=== PATIENT | male | born 1965 | race Caucasian/White ===

== ENCOUNTER 2017-02-26 17:31 | Emergency (ER) | payer OTHER ==
[~2017-02-26] VITALS: Ht 162.6 cm; Wt 80.3 kg
[~2017-02-26 17:31] MED LIST: AMBIEN10 MG PO; AMBIEN5 MG PO; ANALGESIC325 M1 PO; ANUCORT-HC25 MG RC; ANUSOL HC,ANUCO25 MG PR; ASPIR-LOW81 MG PO; AUGMENTIN875 MG PO; AZITHROMYCIN250 MG1 PO; Ambien PO; BACTRIM,SEPT1 TABLET PO; BACTROBAN OINTM22 GM TP; CANASA1000 MG PR; CEFDINIR300 MG PO; CIPRO500 MG PO; CIPROFLOXACIN500 M1 PO; CLONAZEPAM1 M1 PO; CLONAZEPAM1 MG PO; CRESTOR10 MG PO; DESIPRAMINE HC100 MG PO; DESIPRAMINE HC150 MG PO; DESIPRAMINE HCL50 MG PO; DOLOPHINE HCL5 MG PO; DOXYCYCLINE HY100 MG PO; ECOTRIN325 MG PO; EQUATE1 EACH MC; Ecotrin PO; Flexeril PO; GABAPENTIN300 MG PO; GABAPENTIN800 MG PO; GEMFIBROZIL600 MG PO; GLUCOPHAGE1000 MG PO; GLUCOPHAGE500 MG PO; Glucophage PO; HYDROCORTISONE25 MG PO; INDERAL80 M1 NG; INDOCIN25 MG PO; KEPPRA250 MG PO; KLONOPIN0.5 M1 PO; KLONOPIN1 MG PO; KLONOPIN2 MG PO; KlonoPIN PO; LANTUS 10100 UNITS/ SC; LANTUS 3 M100 UNITS1 SC; LANTUS100 UNIT/1 SQ; LEVEMIR FL100 UNIT/1 SC; LISINIPRIL; LO-DOSE ASPIRIN81 M1 PO; LORAZEPAM1 MG PO; LOVASTATIN10 MG PO; METFORMIN HCL1000 M1 PO; METFORMIN HCL1000 MG PO; METOCLOPRAMIDE10 MG PO; METRONIDAZOLE500 MG PO; MYCOSTATIN 100,60 ML PO; NAPROSYN500 MG PO; NEURONTIN300 MG PO; NEURONTIN50 MG/ML PO; NEURONTIN600 MG PO; NEURONTIN800 MG PO; NORPRAMIN PO; NOVOLOG MI100 UNIT/3 SQ; NOVOLOG PE100 UNITS/ SC; Neurontin PO; OXECTA5 MG PO; OXYCODONE HCL10 MG PO; OXYCODONE HCL5 MG PO; PANTOPRAZOLE SO40 MG PO; PLAVIX75 MG PO; PRAVASTATIN SOD40 MG PO; PROPRANOLOL HCL80 MG PO; PROTONIX40 MG PO; Plavix PO; PriLOSEC PO; ROXICODONE5 MG PO; SILVASORB1.5 OZ TP; SYMBICORT60 INHALAT IH; TEGRETOL200 MG PO; TOPAMAX25 MG PO; TOPIRAMATE25 MG PO; TRILEPTAL600 MG PO; TRILIPIX135 MG PO; TYLENOL WITH C1 EACH PO; Trileptal PO; Ultram PO; VENTOLIN HFA18 GM IH; VITAMIN D50000 UNI1 PO; ZESTRIL,PRINIVI20 MG PO; ZESTRIL40 MG PO; ZITHROMAX Z-PA250 MG PO; ZOFRAN ODT4 MG PO; ZOFRAN4 MG PO; ZOLPIDEM TARTRA10 MG PO; Zestril,Prinivil PO; oxyCODONE PO
[2017-02-26] MEDS ORDERED: LANTUS 3 M100 UNITS1 SC (18:53)
[2017-02-26 19:17] LABS: EOSINOPHIL COUNT 0.1 K/uL (0-0.3); HEMATOCRIT 41.5 % (38.0-50.0); IMMATURE GRANULOCYTE (%) 0.2 % (0.0-0.7); INSTRUMENT ABS NEUTROPHIL CT 2.7 K/uL; MCH 31.1 PG (29.0-34.0); MCHC 35.4 G/DL (30.0-36.0); MCV 87.7 FL (86-99); MEAN PLAT.VOLUME 10.1 uM^3 (9.0-12.4); MONOCYTE (%) 7.4 % (3-12); MONOCYTE COUNT 0.4 K/uL (0-0.8); NEUTROPHIL COUNT 2.7 K/uL (1.8-6.4); PLATELET COUNT 259 K/uL (156-360); RBC DIS.WIDTH-CV 12.5 % (11.8-14.6); RBC DIS.WIDTH-SD 40.4 % (39-53); RED BLOOD COUNT 4.73 M/uL (4.00-5.50); WHITE BLOOD COUNT 5.1 K/uL (4.1-10.2)
[2017-02-26 19:24] LABS: ADD MIUA? NO; BILIRUBIN NEGATIVE; BLOOD NEGATIVE; COLOR YELLOW ((YELLOW)); GLUCOSE (STRIP) NEGATIVE; KETONES NEGATIVE; LEUKOCYTES NEGATIVE; NITRITE NEGATIVE; PROTEIN (STRIP) NEGATIVE; SPECIFIC GRAVITY 1.011 (1.000-1.030); UROBILINOGEN 0.2 MG/DL (0.2-1.0)
[2017-02-26 19:25] LABS: CHLORIDE 107 mEq/L (99-109); POTASSIUM 3.8 mEq/L (3.7-5.4); SODIUM 138 mEq/L (136-147)
[2017-02-26 19:26] LABS: POINT-OF-CARE METER ID UU14100415
[2017-02-26 19:27] LABS: GLUCOSE 125 mg/dL (70-99)
[2017-02-26 19:28] LABS: ANION GAP 8 MEQ/L (2-14)
[2017-02-26 19:29] LABS: TOTAL BILIRUBIN 0.4 mg/dL (0.0-1.0)
[2017-02-26 19:30] LABS: ALKALINE PHOSPHATASE 87 IU/L (3-129)
[2017-02-26 19:31] LABS: GFR ESTIMATE (CALCULATED) > 59 mL/min/
[2017-02-26 19:32] LABS: UREA NITROGEN (BUN) 17 mg/dL (9-23)
[2017-02-26 19:34] LABS: LIPASE 22 U/L (1.0-51.0)
[2017-02-26] MEDS ORDERED: FIORICET,ESG1 TABLET PO (21:14)
[2017-02-26 21:39] VITALS: BP 154/92
== END 2017-02-26 21:41 | disposition home or self-care (01) ==
LOC: EME 17:31
PROVIDERS: Emergency Medicine
DX: G43.909 Migraine, unspecified, not intractable, without status migrainosus (principal); F41.1 Generalized anxiety disorder; E11.9 Type 2 diabetes mellitus without complications; I10 Essential (primary) hypertension; Z86.73 Personal history of transient ischemic attack (TIA), and cerebral infarction without residual deficits
CPT/HCPCS: 70450; 80053; 81003; 82948; 83690; 85025; 99281; 99284; J7030

== ENCOUNTER 2017-04-20 00:43 | Inpatient (IN) | payer OTHER ==
[~2017-04-20] VITALS: Ht 162.6 cm; Wt 80.6 kg
[~2017-04-20 00:43] MED LIST changes: +FIORICET,ESG1 TABLET PO
[2017-04-20 01:40] LABS: HEMATOCRIT 31.4 % (38.0-50.0); MCHC 36.6 G/DL (30.0-36.0); MEAN PLAT.VOLUME 9.9 uM^3 (9.0-12.4); RBC DIS.WIDTH-CV 12.8 % (11.8-14.6); RBC DIS.WIDTH-SD 42.2 % (39-53)
[2017-04-20 01:44] LABS: PLATELET COUNT 150 K/uL (156-360); RED BLOOD COUNT 3.49 M/uL (4.00-5.50)
[2017-04-20 01:50] LABS: INTER. NORMALIZED RATIO 1.1; PROTHROMBIN TIME 10.9 (9.2-11.2); PTT 26.8 (25-32)
[2017-04-20 01:54] LABS: CHLORIDE 103 mEq/L (99-109); POTASSIUM 3.7 mEq/L (3.7-5.4); SODIUM 132 mEq/L (136-147)
[2017-04-20 01:57] LABS: ANION GAP 6 MEQ/L (2-14); GLUCOSE 429 mg/dL (70-99)
[2017-04-20 02:00] LABS: GFR ESTIMATE (CALCULATED) > 59 mL/min/
[2017-04-20 02:01] LABS: UREA NITROGEN (BUN) 9 mg/dL (9-23)
[2017-04-20 02:08] LABS: TROP-I INTERPRETATION NEGATIVE; TROPONIN-I < 0.01 ng/mL (0.0-0.30)
[2017-04-20 03:26] LABS: IMM.RETIC FRACTION 11.7 % (3-19); RETIC HGB EQUIVALENT 37.4 (28-36); RETICULOCYTE COUNT 2.3 % (0.5-1.8)
[2017-04-20 03:48] LABS: POINT-OF-CARE METER ID UU13113702
[2017-04-20 04:07] LABS: D-DIMER ELISA 0.19 mg/L FEU (< 0.57)
[2017-04-20 04:18] LABS: IRON 48 MCG/DL (35-150)
[2017-04-20 04:58] VITALS: BP 126/75
[2017-04-20 07:14] VITALS: BP 109/62
[2017-04-20 07:46] LABS: POINT-OF-CARE METER ID UU14174216
[2017-04-20 08:18] LABS: FERRITIN 41 NG/ML (22-322)
[2017-04-20 08:20] LABS: TROP-I INTERPRETATION NEGATIVE; TROPONIN-I < 0.01 ng/mL (0.0-0.30)
[2017-04-20 11:31] VITALS: BP 122/72
[2017-04-20 11:38] LABS: POINT-OF-CARE METER ID UU14174216
[2017-04-20 15:30] VITALS: BP 123/73
[2017-04-20 15:31] LABS: TROP-I INTERPRETATION NEGATIVE; TROPONIN-I < 0.01 ng/mL (0.0-0.30)
[2017-04-20 16:15] LABS: POINT-OF-CARE METER ID UU14174216
[2017-04-20] MEDS ORDERED: AMBIEN10 MG PO (20:24)
[2017-04-20 21:37] LABS: POINT-OF-CARE METER ID UU13113781
[2017-04-21 00:11] VITALS: BP 143/74
[2017-04-21 03:53] VITALS: BP 132/73
[2017-04-21 05:00] LABS: HEMATOCRIT 34.5 % (38.0-50.0); MCHC 35.7 G/DL (30.0-36.0); MCV 89.8 FL (86-99); MEAN PLAT.VOLUME 10.2 uM^3 (9.0-12.4); PLATELET COUNT 187 K/uL (156-360); RBC DIS.WIDTH-CV 12.8 % (11.8-14.6); RBC DIS.WIDTH-SD 41.9 % (39-53); RED BLOOD COUNT 3.84 M/uL (4.00-5.50); WHITE BLOOD COUNT 4.6 K/uL (4.1-10.2)
[2017-04-21 05:18] LABS: CHLORIDE 105 mEq/L (99-109); POTASSIUM 3.8 mEq/L (3.7-5.4); SODIUM 136 mEq/L (136-147)
[2017-04-21 05:20] LABS: GLUCOSE 242 mg/dL (70-99)
[2017-04-21 05:22] LABS: ANION GAP 7 MEQ/L (2-14)
[2017-04-21 05:24] LABS: GFR ESTIMATE (CALCULATED) > 59 mL/min/
[2017-04-21 05:25] LABS: UREA NITROGEN (BUN) 8 mg/dL (9-23)
[2017-04-21 07:07] VITALS: BP 133/89
[2017-04-21 11:20] VITALS: BP 139/71
[2017-04-21 11:33] LABS: POINT-OF-CARE METER ID UU13113781
[2017-04-21] MEDS ORDERED: TOPAMAX50 MG PO (13:41)
[2017-04-21 16:20] LABS: POINT-OF-CARE METER ID UU14174216
[2017-04-21 16:52] VITALS: BP 140/87
[2017-04-21 20:46] LABS: POINT-OF-CARE USER ID ENVMNS
[2017-04-21 20:50] VITALS: BP 137/82
[2017-04-22] VITALS: BP 138/76
[2017-04-22 04:42] VITALS: BP 149/74
[2017-04-22 07:48] VITALS: BP 121/78
[2017-04-22 07:48] LABS: HEMATOCRIT 38.3 % (38.0-50.0); MCH 31.9 PG (29.0-34.0); MCHC 35.5 G/DL (30.0-36.0); MCV 89.9 FL (86-99); MEAN PLAT.VOLUME 10.2 uM^3 (9.0-12.4); PLATELET COUNT 225 K/uL (156-360); RBC DIS.WIDTH-SD 42.2 % (39-53); RED BLOOD COUNT 4.26 M/uL (4.00-5.50); WHITE BLOOD COUNT 5.2 K/uL (4.1-10.2)
[2017-04-22 08:11] LABS: POINT-OF-CARE METER ID UU14174216; POINT-OF-CARE USER ID ENVKC36
[2017-04-22 08:21] LABS: ANION GAP 8 MEQ/L (2-14); CHLORIDE 105 MEQ/L (99-109); GFR ESTIMATE (CALCULATED) > 59 mL/min/; GLUCOSE 251 mg/dL (70-99); POTASSIUM 3.8 MEQ/L (3.7-5.4); SAMPLE HEMOLYSIS CHECK 0; SAMPLE ICTERIC CHECK 0; SAMPLE LIPEMIA CHECK 0; SODIUM 140 MEQ/L (136-147); UREA NITROGEN (BUN) 9 mg/dL (9-23)
[2017-04-22 10:09] LABS: POINT-OF-CARE METER ID UU13113702; POINT-OF-CARE USER ID 608261302
[2017-04-22 12:19] LABS: POINT-OF-CARE METER ID UU13113781; POINT-OF-CARE USER ID ENVKC36
[2017-04-22 12:27] VITALS: BP 138/74
== END 2017-04-22 15:56 | disposition home health service (06) | DRG 556 ==
LOC: EME → EDBD 00:43 → 4EAST 02:30 → EDOF 02:30 → 4EAST 04:10
PROVIDERS: Emergency Medicine; Internal Medicine
DX: M62.81 Muscle weakness (generalized) (principal); D61.818 Other pancytopenia; E11.65 Type 2 diabetes mellitus with hyperglycemia; E87.1 Hypo-osmolality and hyponatremia; I69.354 Hemiplegia and hemiparesis following cerebral infarction affecting left non-dominant side; I69.322 Dysarthria following cerebral infarction; R13.10 Dysphagia, unspecified; R00.0 Tachycardia, unspecified; G89.4 Chronic pain syndrome; M54.2 Cervicalgia; E04.1 Nontoxic single thyroid nodule; I10 Essential (primary) hypertension; B19.20 Unspecified viral hepatitis C without hepatic coma; F31.9 Bipolar disorder, unspecified; E66.9 Obesity, unspecified; Z68.31 Body mass index [BMI] 31.0-31.9, adult; Z79.4 Long term (current) use of insulin
CPT/HCPCS: 70450; 70551; 71020; 80048; 82272; 82607; 82728; 82746; 82948; 83540; 84439; 84443; 84484; 85027; 85045; 85379; 85610; 85730; 92523 GN; 93005; 94640; 94640 76; 99281; 99285; J1650; J1815; J2060; J2270; J7030

== ENCOUNTER 2017-05-28 01:41 | Emergency (ER) | payer OTHER ==
[~2017-05-28] VITALS: Ht 162.6 cm; Wt 79.3 kg
[~2017-05-28 01:41] MED LIST changes: +TOPAMAX50 MG PO
[2017-05-28] MEDS ORDERED: ELIMITE 5% CREA60 GM TP (02:29)
[2017-05-28] MEDS ORDERED: ATARAX,VISTARIL50 MG PO (02:30)
[2017-05-28 02:33] VITALS: BP 151/109
== END 2017-05-28 02:50 | disposition home or self-care (01) ==
LOC: EXP 01:41 → EME 01:41 → EXP 02:50
DX: B86 Scabies (principal)
CPT/HCPCS: 99281; 99284; Q0177

== ENCOUNTER 2017-08-21 15:09 | Emergency (ER) | payer OTHER ==
[~2017-08-21] VITALS: Ht 162.6 cm; Wt 80.1 kg
[~2017-08-21 15:09] MED LIST changes: +ATARAX,VISTARIL50 MG PO; +ELIMITE 5% CREA60 GM TP
[2017-08-21 16:10] LABS: HEMATOCRIT 37.8 % (38.0-50.0); MCHC 35.7 G/DL (30.0-36.0); MCV 89.6 FL (86-99); MEAN PLAT.VOLUME 8.9 uM^3 (9.0-12.4); PLATELET COUNT 208 K/uL (156-360); RBC DIS.WIDTH-CV 12.8 % (11.8-14.6); RBC DIS.WIDTH-SD 41.8 % (39-53); RED BLOOD COUNT 4.22 M/uL (4.00-5.50); WHITE BLOOD COUNT 5.4 K/uL (4.1-10.2)
[2017-08-21 16:19] LABS: CHLORIDE 110 mEq/L (99-109); POTASSIUM 3.9 mEq/L (3.7-5.4); SODIUM 142 mEq/L (136-147)
[2017-08-21 16:21] LABS: GLUCOSE 82 mg/dL (70-99)
[2017-08-21 16:22] LABS: ANION GAP 11 MEQ/L (2-14)
[2017-08-21 16:24] LABS: GFR ESTIMATE (CALCULATED) > 59 mL/min/
[2017-08-21 16:25] LABS: UREA NITROGEN (BUN) 9 mg/dL (9-23)
[2017-08-21] MEDS ORDERED: CLEOCIN300 MG PO (19:35)
[2017-08-21] MEDS ORDERED: PERMETHRIN118 ML TP (19:37)
[2017-08-21 19:50] VITALS: BP 128/78
== END 2017-08-21 19:51 | disposition home or self-care (01) ==
LOC: EME 15:09
PROVIDERS: Nurse Practitioner Family
DX: L03.113 Cellulitis of right upper limb (principal); B86 Scabies; E11.9 Type 2 diabetes mellitus without complications; Z86.73 Personal history of transient ischemic attack (TIA), and cerebral infarction without residual deficits
CPT/HCPCS: 73080; 80048; 85027; 93971; 99281; 99284

== ENCOUNTER 2017-09-09 02:32 | Emergency (ER) | payer OTHER ==
[~2017-09-09] VITALS: Ht 162.6 cm; Wt 75.9 kg
[~2017-09-09 02:32] MED LIST changes: +CLEOCIN300 MG PO; +PERMETHRIN118 ML TP
[2017-09-09 03:07] LABS: CARBON DIOXIDE (BICARBONATE) 26.8 MEQ/L (20-31)
[2017-09-09 03:10] LABS: HEMATOCRIT 31.5 % (38.0-50.0); MCH 31.7 PG (29.0-34.0); MCHC 35.2 G/DL (30.0-36.0); MEAN PLAT.VOLUME 9.6 uM^3 (9.0-12.4); PLATELET COUNT 180 K/uL (156-360); RBC DIS.WIDTH-CV 12.4 % (11.8-14.6); RBC DIS.WIDTH-SD 40.3 % (39-53); WHITE BLOOD COUNT 5.1 K/uL (4.1-10.2)
[2017-09-09 03:17] LABS: CHLORIDE 104 mEq/L (99-109); POTASSIUM 4.4 mEq/L (3.7-5.4); SODIUM 136 mEq/L (136-147)
[2017-09-09 03:17] LABS: ADD MIUA? NO; BILIRUBIN NEGATIVE; BLOOD NEGATIVE; COLOR YELLOW ((YELLOW)); GLUCOSE (STRIP) NEGATIVE; KETONES NEGATIVE; LEUKOCYTES NEGATIVE; NITRITE NEGATIVE; PROTEIN (STRIP) NEGATIVE; SPECIFIC GRAVITY 1.026 (1.000-1.030); UCUL ADDED? NO; UROBILINOGEN 0.2 MG/DL (0.2-1.0)
[2017-09-09 03:19] LABS: GLUCOSE 155 mg/dL (70-99)
[2017-09-09 03:20] LABS: ANION GAP 11 MEQ/L (2-14)
[2017-09-09 03:23] LABS: GFR ESTIMATE (CALCULATED) > 59 mL/min/
[2017-09-09 03:24] LABS: UREA NITROGEN (BUN) 19 mg/dL (9-23)
[2017-09-09] MEDS ORDERED: LIDODERM 5% P1 PATCH TD (03:41)
[2017-09-09] MEDS ORDERED: TIZANIDINE HCL2 MG PO (03:41)
[2017-09-09 04:13] VITALS: BP 107/66
== END 2017-09-09 04:17 | disposition home or self-care (01) ==
LOC: EME 02:32
PROVIDERS: Emergency Medicine
DX: M54.5 Low back pain (principal); S00.93XA Contusion of unspecified part of head, initial encounter; W18.30XA Fall on same level, unspecified, initial encounter; Y92.009 Unspecified place in unspecified non-institutional (private) residence as the place of occurrence of the external cause; Y93.01 Activity, walking, marching and hiking; E11.9 Type 2 diabetes mellitus without complications; J44.9 Chronic obstructive pulmonary disease, unspecified; I10 Essential (primary) hypertension; B19.20 Unspecified viral hepatitis C without hepatic coma; F41.9 Anxiety disorder, unspecified; F32.9 Major depressive disorder, single episode, unspecified; F31.9 Bipolar disorder, unspecified; R56.9 Unspecified convulsions; Z79.4 Long term (current) use of insulin; Z79.82 Long term (current) use of aspirin; Z86.73 Personal history of transient ischemic attack (TIA), and cerebral infarction without residual deficits; Z88.8 Allergy status to other drugs, medicaments and biological substances
CPT/HCPCS: 70450; 72131; 80048; 81003; 82803; 85027; 99281; 99283; J3010

== ENCOUNTER 2017-11-15 17:51 | Emergency (ER) | payer OTHER ==
[~2017-11-15] VITALS: Ht 162.6 cm; Wt 81.2 kg
[~2017-11-15 17:51] MED LIST changes: +LIDODERM 5% P1 PATCH TD; +TIZANIDINE HCL2 MG PO
[2017-11-15 19:20] LABS: POINT-OF-CARE METER ID UU13113800; POINT-OF-CARE USER ID PUTMLD10
[2017-11-15 19:27] LABS: ADD MIUA? NO; BILIRUBIN NEGATIVE; BLOOD NEGATIVE; COLOR YELLOW ((YELLOW)); GLUCOSE (STRIP) >=500; KETONES 5; LEUKOCYTES NEGATIVE; NITRITE NEGATIVE; PROTEIN (STRIP) 30; SPECIFIC GRAVITY 1.029 (1.000-1.030); UCUL ADDED? NO; UROBILINOGEN 0.2 MG/DL (0.2-1.0)
[2017-11-15 19:42] LABS: MCH 33.3 PG (29.0-34.0); MCV 90.2 FL (86-99); MEAN PLAT.VOLUME 9.6 uM^3 (9.0-12.4); PLATELET COUNT 227 K/uL (156-360); RBC DIS.WIDTH-CV 13.1 % (11.8-14.6); RED BLOOD COUNT 3.66 M/uL (4.00-5.50); WHITE BLOOD COUNT 6.1 K/uL (4.1-10.2)
[2017-11-15 19:54] LABS: CHLORIDE 106 mEq/L (99-109); POTASSIUM 3.6 mEq/L (3.7-5.4); SODIUM 136 mEq/L (136-147)
[2017-11-15 19:56] LABS: GLUCOSE 309 mg/dL (70-99)
[2017-11-15 19:57] LABS: ANION GAP 9 MEQ/L (2-14)
[2017-11-15 19:58] LABS: TOTAL BILIRUBIN 0.3 mg/dL (0.0-1.0)
[2017-11-15 19:59] LABS: ALKALINE PHOSPHATASE 113 IU/L (3-129)
[2017-11-15 20:00] LABS: GFR ESTIMATE (CALCULATED) > 59 mL/min/ (58.99-99999)
[2017-11-15 20:01] LABS: UREA NITROGEN (BUN) 17 mg/dL (9-23)
[2017-11-15 20:35] LABS: POINT-OF-CARE METER ID UU13113800
[2017-11-15] MEDS ORDERED: CLEOCIN300 MG PO (20:36)
[2017-11-15 20:54] VITALS: BP 146/84
== END 2017-11-15 20:54 | disposition home or self-care (01) ==
LOC: EME 17:51
PROVIDERS: Physician Assistant
DX: L03.90 Cellulitis, unspecified (principal); E10.65 Type 1 diabetes mellitus with hyperglycemia; F41.9 Anxiety disorder, unspecified; F17.200 Nicotine dependence, unspecified, uncomplicated; Z79.4 Long term (current) use of insulin; Z91.19 Patient's noncompliance with other medical treatment and regimen; Z88.5 Allergy status to narcotic agent; Z88.8 Allergy status to other drugs, medicaments and biological substances; Z86.14 Personal history of Methicillin resistant Staphylococcus aureus infection
CPT/HCPCS: 80053; 81003; 82010; 82948; 85027; 99281; 99284; J7030

== ENCOUNTER 2018-01-08 12:38 | Emergency (ER) | payer OTHER ==
[~2018-01-08] VITALS: Ht 162.6 cm; Wt 84.1 kg
[2018-01-08 16:55] LABS: BASOPHIL (%) 0.3 % (0-1); EOSINOPHIL (%) 2.4 % (0-5); EOSINOPHIL COUNT 0.1 K/uL (0-0.3); HEMATOCRIT 34.9 % (38.0-50.0); HEMOGLOBIN 12.5 G/DL (12.5-16.6); IMMATURE GRANULOCYTE (%) 0.3 % (0.0-0.7); LYMPHOCYTE (%) 40.4 % (15-42); LYMPHOCYTE COUNT 1.5 K/uL (1.0-2.8); MCH 32.7 PG (29.0-34.0); MCHC 35.8 G/DL (30.0-36.0); MCV 91.4 FL (86-99); MONOCYTE (%) 6.7 % (3-12); MONOCYTE COUNT 0.3 K/uL (0-0.8); NEUTROPHIL (%) 49.9 % (45-76); NEUTROPHIL COUNT 1.9 K/uL (1.8-6.4); PLATELET COUNT 188 K/uL (156-360); RBC DIS.WIDTH-CV 12.8 % (11.8-14.6); RBC DIS.WIDTH-SD 42.2 % (39-53); RED BLOOD COUNT 3.82 M/uL (4.00-5.50); WHITE BLOOD COUNT 3.7 K/uL (4.1-10.2)
[2018-01-08 17:05] LABS: ALBUMIN 3.8 g/dL (3.2-4.8); CHLORIDE 105 mEq/L (99-109); POTASSIUM 3.8 mEq/L (3.7-5.4); SODIUM 136 mEq/L (136-147)
[2018-01-08 17:06] LABS: MAGNESIUM 1.8 mg/dL (1.3-2.7)
[2018-01-08 17:07] LABS: GLUCOSE 102 mg/dL (70-99); TOTAL PROTEIN 6.8 g/dL (6.4-8.3)
[2018-01-08 17:09] LABS: TOTAL BILIRUBIN 0.9 mg/dL (0.0-1.0)
[2018-01-08 17:11] LABS: ALKALINE PHOSPHATASE 126 IU/L (3-129); CREATININE 1.1 mg/dL (0.6-1.3); GFR ESTIMATE (CALCULATED) > 59 mL/min/ (58.99-99999)
[2018-01-08 17:12] LABS: UREA NITROGEN (BUN) 18 mg/dL (9-23)
[2018-01-08 17:13] LABS: AST (GOT) 258 IU/L (2-34)
[2018-01-08 17:14] LABS: ALT (GPT) 131 IU/L (3-49)
[2018-01-08] MEDS ORDERED: ZANTAC150 MG PO (20:16)
[2018-01-08] MEDS ORDERED: MOTRIN800 MG PO (20:16)
[2018-01-08] MEDS ORDERED: COLACE100 MG PO (20:35)
[2018-01-08 21:00] VITALS: BP 116/82
== END 2018-01-08 21:00 | disposition home or self-care (01) ==
LOC: EME 12:38
PROVIDERS: Emergency Medicine
DX: G89.29 Other chronic pain (principal); M25.551 Pain in right hip; M25.552 Pain in left hip; R51 Headache; R79.89 Other specified abnormal findings of blood chemistry; K59.03 Drug induced constipation; T40.2X5A Adverse effect of other opioids, initial encounter; M79.89 Other specified soft tissue disorders; R19.5 Other fecal abnormalities; J44.9 Chronic obstructive pulmonary disease, unspecified; I10 Essential (primary) hypertension; E11.9 Type 2 diabetes mellitus without complications; Z79.4 Long term (current) use of insulin; Z79.02 Long term (current) use of antithrombotics/antiplatelets; Z79.82 Long term (current) use of aspirin; Z86.73 Personal history of transient ischemic attack (TIA), and cerebral infarction without residual deficits; Z91.81 History of falling; Z90.49 Acquired absence of other specified parts of digestive tract
CPT/HCPCS: 73521; 74176; 80053; 83735; 85025; 93005; 99281; 99285